=== PATIENT | female | born 1970 | race African-American/Black ===

== ENCOUNTER 2022-04-04 08:33 | Outpatient (CLI) | payer OTHER | END 2022-04-04 08:34 | disposition home or self-care (01) | LOC: CSHWCC 08:33 | PROVIDERS: ATTEND Preventive Medicine Undersea and Hyperbaric Medicine | DX: T81.89XD Other complications of procedures, not elsewhere classified, subsequent encounter (principal) | CPT/HCPCS: 97605; 99203; G0463 ==

== ENCOUNTER 2022-04-07 09:44 | Outpatient (CLI) | payer OTHER | END 2022-04-07 09:45 | disposition home or self-care (01) | LOC: CSHWCC 09:44 | PROVIDERS: ATTEND Nurse Practitioner Family | DX: T81.89XD Other complications of procedures, not elsewhere classified, subsequent encounter (principal) | CPT/HCPCS: 97605 ==

== ENCOUNTER 2022-04-11 13:41 | Outpatient (CLI) | payer OTHER | END 2022-04-11 13:42 | disposition home or self-care (01) | LOC: CSHWCC 13:41 | PROVIDERS: ATTEND Nurse Practitioner Family | DX: T81.89XD Other complications of procedures, not elsewhere classified, subsequent encounter (principal) | CPT/HCPCS: 97605 ==